=== PATIENT | female | born 1960 | race Caucasian/White ===

== ENCOUNTER 2018-09-21 19:44 | Emergency (ER) | payer OTHER ==
[2018-09-21] MEDS: ONDANSETRON (ODT) 4 MG TAB ODT (20:28)
[2018-09-21] MEDS: IBUPROFEN 600 MG TAB PO (20:28)
[2018-09-21 20:46] LABS: ADD UMIC NO; UR ASCORBIC ACID 20 mg/dL (NEGATIVE); UR BILIRUBIN (Dip) NEGATIVE (NEGATIVE); UR BLOOD (Dip) NEGATIVE (NEGATIVE); UR CLARITY SLIGHTLY CLOUDY (CLEAR); UR COLOR YELLOW (YELLOW); UR GLUCOSE (Dip) NEGATIVE (NEGATIVE); UR KETONES (Dip) 1+ mg/dL (NEGATIVE); UR LEUKOCYTE ESTERASE (Dip) NEGATIVE Leu/ul (NEGATIVE); UR MUCUS FEW /HPF (NONE SEEN); UR NITRITE (Dip) NEGATIVE (NEGATIVE); UR RBC 2 /HPF (0-5); UR SPECIFIC GRAVITY (Dip) 1.018 (1.003-1.030); UR SQUAMOUS EPITHELIAL CELL FEW /HPF (FEW); UR TOTAL PROTEIN (Dip) NEGATIVE (NEGATIVE); UR UROBILINOGEN (Dip) 1+ mg/dL (NEGATIVE); UR WBC 0 /HPF (0-5)
== END 2018-09-21 21:30 | disposition home or self-care (01) ==
LOC: FTE 19:44
DX: J06.9 Acute upper respiratory infection, unspecified (principal); R11.10 Vomiting, unspecified
CPT/HCPCS: 81001; 81003; 87400; 99283

== ENCOUNTER 2018-11-18 10:40 | Inpatient (IN) | payer OTHER ==
[~2018-11-18 10:40] MED LIST: EPHEDrine SULFATE 50 MG/5 ML SYG
[2018-11-18] MEDS ORDERED: BACITRACIN/POLYMYXIN 28.35 GM OINT TOP (12:18)
[2018-11-18] MEDS: BACITRACIN/POLYMYXIN 28.35 GM OINT TOP (12:44)
[2018-11-18] MEDS: POLYMYXIN/BACITRACIN 1L IRRIG (12:44)
[2018-11-18] MEDS ORDERED: POLYMYXIN/BACITRACIN 1L IRRIG (12:57)
[2018-11-18] MEDS ORDERED: OXYCODONE/ACETAMINOPHEN (5/325) TAB PO (13:00)
[2018-11-18] MEDS ORDERED: MEPERIDINE 25 MG INJ IV (13:00)
[2018-11-18] MEDS ORDERED: LABETALOL HCL 20MG INJ IV (13:00)
[2018-11-18] MEDS ORDERED: FENTAnyl 50 MCG/ML VIAL IV (13:00)
[2018-11-18] MEDS ORDERED: DIPHENHYDRAMINE 50 MG INJ IV (13:00)
[2018-11-18] MEDS ORDERED: hydrALAzine 20 MG INJ IV (13:00)
[2018-11-18] MEDS ORDERED: PROCHLORPERAZINE 10 MG INJ IV (13:00)
[2018-11-18] MEDS ORDERED: HYDROmorphONE 1 MG/5 ML IV SYRINGE IV ×3 (13:00)
[2018-11-18] MEDS ORDERED: morphine SULFATE/PF (10 MG/10 ML) INJ (13:13)
[2018-11-18] MEDS ORDERED: MIDAZOLAM 1 MG/ML 2 ML INJ (13:13)
[2018-11-18] MEDS ORDERED: TRANEXAMIC ACID 1GM/100ML(PMX) 100 ML (13:35)
[2018-11-18] MEDS ORDERED: PROPOFOL 20 ML (13:38)
[2018-11-18] MEDS ORDERED: CEFAZOLIN 1 GM INJ (13:38)
[2018-11-18] MEDS ORDERED: LIDOCAINE 2% (SDV) 5 ML INJ (13:38)
[2018-11-18] MEDS ORDERED: PROPOFOL 100 ML (13:38)
[2018-11-18] MEDS ORDERED: FAMOTIDINE 20 MG INJ (13:40)
[2018-11-18] MEDS ORDERED: DEXAMETHASONE 4 MG/ML 5 ML INJ (13:40)
[2018-11-18] MEDS ORDERED: ONDANSETRON 4 MG INJ (13:40)
[2018-11-18] MEDS ORDERED: PHENYLephrine (100 MCG/ML) 5ML SYG (13:45)
[2018-11-18] MEDS ORDERED: NALOXONE (0.4 MG/ML) INJ IV (14:00)
[2018-11-18] MEDS ORDERED: HYDROmorphONE 0.5 MG/0.5 ML SYG IV (14:00)
[2018-11-18] MEDS ORDERED: NALBUPHINE HCL (10 MG/1 ML) INJ IV (14:00)
[2018-11-18] MEDS ORDERED: CEFAZOLIN 1 GM/50 ML (PMX) 50 ML IVPB (16:15)
[2018-11-18] MEDS: ONDANSETRON 4 MG INJ IV ×2 (16:21→18:41)
[2018-11-18] MEDS: CEFAZOLIN 1 GM/50 ML (PMX) 50 ML IVPB ×2 (16:35→22:07)
[2018-11-18] MEDS: ASPIRIN 325 MG TAB PO (20:04)
[2018-11-18] MEDS: DIPHENHYDRAMINE 50 MG INJ IV (20:04)
[2018-11-18] MEDS: DEXTROSE 5%-0.45% NACL 1,000 ML IV (20:05)
[2018-11-19] MEDS: ONDANSETRON 4 MG INJ IV ×3 (04:45→21:24)
[2018-11-19] MEDS: HYDROmorphONE 0.5 MG/0.5 ML SYG IV ×3 (04:46→16:03)
[2018-11-19] MEDS: PANTOPRAZOLE 40 MG INJ IV (05:39)
[2018-11-19] MEDS: CEFAZOLIN 1 GM/50 ML (PMX) 50 ML IVPB (05:40)
[2018-11-19 06:18] LABS: ADD MAN DIFF? NO
[2018-11-19 06:30] LABS: WHITE BLOOD COUNT 12.7 10^3/ul (4.8-10.8)
[2018-11-19 06:30] LABS: BASOPHILS % 0.2 % (0.0-2.0); LYMPHOCYTES # 1.1 10^3/ul (0.8-2.9); LYMPHOCYTES % 8.4 % (15.0-51.0); MEAN CORPUSCULAR HGB CONC 33.3 g/dl (32.0-37.0); MEAN PLATELET VOLUME 9.8 fl (7.4-10.4); MONOCYTE # 0.5 10^3/ul (0.3-0.9); MONOCYTES % 3.9 % (0.0-11.0); NEUTROPHIL # 11.1 10^3/ul (1.6-7.5); NEUTROPHILS % 87.1 % (39.0-77.0); PLATELET COUNT 294 10^3/UL (140-415); RED CELL DISTRIBUTION WIDTH 13.2 % (11.5-14.5)
[2018-11-19 07:03] LABS: ANION GAP 9 (5-13); BLOOD UREA NITROGEN 10 mg/dl (7-20); CARBON DIOXIDE 28 mmol/L (21-31); CHLORIDE 104 mmol/L (97-110); CREATININE 0.41 mg/dl (0.44-1.00); Estimated GFR > 60 mL/min (>60); GLUCOSE 142 mg/dl (70-220); POTASSIUM 3.7 mmol/L (3.5-5.1); SODIUM 141 mmol/L (135-144)
[2018-11-19] MEDS: ASPIRIN 325 MG TAB PO ×2 (08:48→21:23)
[2018-11-19] MEDS: DEXTROSE 5%-0.45% NACL 1,000 ML IV (08:48)
[2018-11-19 16:07] LABS: INR 0.97
[2018-11-19] MEDS: DIPHENHYDRAMINE 50 MG INJ IV (16:10)
[2018-11-19] MEDS: KETOROLAC 15 MG INJ IV (18:25)
[2018-11-20] MEDS: KETOROLAC 15 MG INJ IV ×4 (02:05→22:37)
[2018-11-20] MEDS: DEXTROSE 5%-0.45% NACL 1,000 ML IV (03:50)
[2018-11-20 05:16] LABS: ADD MAN DIFF? NO
[2018-11-20 05:19] LABS: WHITE BLOOD COUNT 11.3 10^3/ul (4.8-10.8)
[2018-11-20 05:20] LABS: BASOPHILS % 0.2 % (0.0-2.0); HEMATOCRIT 33.8 % (37.0-47.0); LYMPHOCYTES # 1.8 10^3/ul (0.8-2.9); LYMPHOCYTES % 16.3 % (15.0-51.0); MEAN CORPUSCULAR HEMOGLOBIN 29.2 pg (29.0-33.0); MEAN CORPUSCULAR HGB CONC 32.5 g/dl (32.0-37.0); MEAN CORPUSCULAR VOLUME 89.7 fl (82.0-101.0); MEAN PLATELET VOLUME 9.7 fl (7.4-10.4); MONOCYTE # 0.7 10^3/ul (0.3-0.9); MONOCYTES % 5.9 % (0.0-11.0); NEUTROPHIL # 8.7 10^3/ul (1.6-7.5); NEUTROPHILS % 77.2 % (39.0-77.0); PLATELET COUNT 236 10^3/UL (140-415); RED BLOOD COUNT 3.77 10^6/ul (4.20-5.40); RED CELL DISTRIBUTION WIDTH 13.2 % (11.5-14.5)
[2018-11-20] MEDS: PANTOPRAZOLE 40 MG INJ IV (05:48)
[2018-11-20] MEDS: ASPIRIN 325 MG TAB PO ×2 (08:34→21:05)
[2018-11-20] MEDS: HYDROmorphONE 0.5 MG/0.5 ML SYG IV ×2 (10:46→19:00)
[2018-11-21] MEDS: DIPHENHYDRAMINE 25 MG CAP PO (01:50)
[2018-11-21] MEDS: KETOROLAC 15 MG INJ IV ×2 (04:53→15:02)
[2018-11-21] MEDS: DEXTROSE 5%-0.45% NACL 1,000 ML IV (04:55)
[2018-11-21] MEDS: PANTOPRAZOLE (EC) 40 MG TAB PO (05:29)
[2018-11-21 05:55] LABS: ADD MAN DIFF? NO
[2018-11-21 06:08] LABS: BASOPHILS % 0.4 % (0.0-2.0); EOSINOPHILS % 0.3 % (0.0-7.0); HEMATOCRIT 35.8 % (37.0-47.0); HEMOGLOBIN 11.8 g/dl (12.0-16.0); LYMPHOCYTES # 2.6 10^3/ul (0.8-2.9); MEAN CORPUSCULAR HEMOGLOBIN 29.8 pg (29.0-33.0); MEAN CORPUSCULAR VOLUME 90.4 fl (82.0-101.0); MEAN PLATELET VOLUME 9.8 fl (7.4-10.4); MONOCYTE # 0.7 10^3/ul (0.3-0.9); MONOCYTES % 6.2 % (0.0-11.0); NEUTROPHIL # 7.6 10^3/ul (1.6-7.5); NEUTROPHILS % 68.7 % (39.0-77.0); PLATELET COUNT 233 10^3/UL (140-415); RED BLOOD COUNT 3.96 10^6/ul (4.20-5.40); RED CELL DISTRIBUTION WIDTH 13.2 % (11.5-14.5)
[2018-11-21 06:26] LABS: ANION GAP 8 (5-13); BLOOD UREA NITROGEN 6 mg/dl (7-20); CALCIUM 8.5 mg/dl (8.4-10.2); CARBON DIOXIDE 29 mmol/L (21-31); CHLORIDE 104 mmol/L (97-110); CREATININE 0.45 mg/dl (0.44-1.00); Estimated GFR > 60 mL/min (>60); GLUCOSE 121 mg/dl (70-220); POTASSIUM 3.4 mmol/L (3.5-5.1); SODIUM 141 mmol/L (135-144)
[2018-11-21] MEDS: HYDROmorphONE 0.5 MG/0.5 ML SYG IV ×2 (08:31→13:28)
[2018-11-21] MEDS: ASPIRIN 325 MG TAB PO ×2 (08:34→20:27)
[2018-11-21] MEDS: POTASSIUM CHLORIDE 20 MEQ POWDER FOR ORAL SOLN PO (15:40)
[2018-11-21] MEDS: HYDROCODONE/APAP (7.5/325) TAB PO (20:27)
[2018-11-22] MEDS: HYDROCODONE/APAP (7.5/325) TAB PO ×2 (05:14→12:50)
[2018-11-22] MEDS: PANTOPRAZOLE (EC) 40 MG TAB PO (05:14)
[2018-11-22 05:44] LABS: HEMATOCRIT 34.7 % (37.0-47.0); HEMOGLOBIN 11.2 g/dl (12.0-16.0)
[2018-11-22] MEDS: ONDANSETRON 4 MG INJ IV (08:06)
[2018-11-22] MEDS: ASPIRIN 325 MG TAB PO (08:35)
[2018-11-22] MEDS: POTASSIUM CHLORIDE 20 MEQ POWDER FOR ORAL SOLN PO (12:50)
== END 2018-11-22 15:10 | disposition home health service (06) | DRG 470 ==
LOC: REC 10:40 → MS1 16:37
PROC: 0SRD069 Replacement of Left Knee Joint with Oxidized Zirconium on Polyethylene Synthetic Substitute, Cemented, Open Approach (ICD-10-PCS; principal; 2018-11-18 12:30)
DX: M17.12 Unilateral primary osteoarthritis, left knee (principal); E66.9 Obesity, unspecified; K21.9 Gastro-esophageal reflux disease without esophagitis; R11.2 Nausea with vomiting, unspecified; E87.6 Hypokalemia; R73.03 Prediabetes; D64.9 Anemia, unspecified; T40.2X5A Adverse effect of other opioids, initial encounter; Z68.34 Body mass index [BMI] 34.0-34.9, adult; Z90.710 Acquired absence of both cervix and uterus
CPT/HCPCS: 80048; 85014; 85018; 85025; 85610; 87086; 88304; 88311; 97116; 97162; 97164; 97530